=== PATIENT | male | born 1960 | race Two or more races ===

== ENCOUNTER 2019-11-01 13:36 | Inpatient (IN) | payer OTHER ==
[~2019-11-01] VITALS: Ht 182.9 cm; Wt 91.2 kg
[2019-11-01] MEDS ORDERED: SODIUM CHLORIDE 0.9% 1,000 ML IV ONE ×2 (13:46)
[2019-11-01] MEDS ORDERED: cefTRIAXone 1GM/50ML D5W 50 ML IV ONE (14:00)
[2019-11-01] MEDS ORDERED: DexAMETHasone SOD PHOS 10MG/1ML VIAL INJ IV ONE (14:00)
[2019-11-01] MEDS ORDERED: DOXYCYCLINE 100 MG TAB/CAP PO ONE (14:00)
[2019-11-01 14:28] LABS: Basophils # (auto) 0.1 10 ^3/uL (0-0.2); Basophils % (auto) 0.5 % (0.0-2.0); Eosinophils # (auto) 0 10 ^3/uL (0-0.8); Hematocrit 46.3 % (41.0-53.0); Hemoglobin 15.5 g/dL (13.5-17.5); Lymphocytes # (auto) 1.1 10 ^3/uL (0.4-5.4); Lymphocytes % (auto) 9.6 % (10.0-50.0); Mean Corpuscular Hemoglobin 28.8 pg (28.0-32.0); Mean Corpuscular Hgb Conc. 33.5 g/dL (32.0-36.0); Monocytes # (auto) 0.6 10 ^3/uL (0-1.3); Monocytes % (auto) 5.4 % (0.0-12.0); Neutrophils # (auto) 9.4 10 ^3/uL (1.6-8.6); Neutrophils % (auto) 84.5 % (37.0-80.0); Nucleated Red Blood Cells % 0.2 %; Platelet Count (auto) 135 10^3/uL (140-450); Red Blood Cells 5.38 10^6/uL (4.5-5.90); Red Cell Distribution Width 13.6 % (11.8-14.3); White Blood Cell 11.1 10^3/uL (4.4-10.8)
[2019-11-01 14:43] LABS: INR 0.98 (0.9-1.15); Partial Thromboplastin Time 29.3 sec (23.64-32.05)
[2019-11-01 14:48] LABS: Albumin 3.2 g/dL (3.4-5.0); Anion Gap 5 (5-15); Blood Urea Nitrogen 15 mg/dL (7-18); Carbon Dioxide 29 mmol/L (21-32); Chloride 99 mmol/L (98-107); Glucose 104 mg/dL (74-106); Potassium 3.7 mmol/L (3.5-5.1); Sodium 133 mmol/L (136-145)
[2019-11-01 14:50] LABS: Alanine Aminotransferase 23 U/L (16-61); Aspartate Aminotransferase 30 U/L (15-37); BUN/Creatinine Ratio 19.2; GFR African American 131 mL/min; GFR Non-African American 109 mL/min
[2019-11-01 14:55] LABS: Alkaline Phosphatase 62 U/L (45-117); Bilirubin, Total 0.6 mg/dL (0.2-1.0); Lactate Dehydrogenase 391 U/L (87-241); Total Protein 7.8 g/dL (6.4-8.2)
[2019-11-01 15:14] LABS: CRP High Sensitivity 11.3 mg/dL (< 0.3)
[2019-11-01] MEDS ORDERED: MORPHINE SULF INJ 2 MG/ML SYRINGE 1ML IV PRN (17:15)
[2019-11-01] MEDS ORDERED: NITROGLYCERIN 0.4 MG SL TAB SL PRN (17:15)
[2019-11-01] MEDS ORDERED: D5W/SOD CHL 0.45% 1,000 ML IV ONE (17:15)
[2019-11-01] MEDS ORDERED: ALBUTEROL SULF 2.5 MG/0.5ML(0.5%) NEB SOLN NEB SCH (18:00)
[2019-11-01 19:22] LABS: Urine Bacteria NONE SEEN /hpf (None Seen); Urine Blood Negative /uL (Negative); Urine WBC 1 /hpf (0 - 3)
[2019-11-01 23:35] VITALS: BP 116/69
[2019-11-01 23:46] VITALS: BP 116/69
[2019-11-01] MEDS ORDERED: ALBUAER3 IN (23:53)
[2019-11-01] MEDS ORDERED: MELO1TAB56 PO (23:53)
[2019-11-01] MEDS ORDERED: DULO1CAP5 PO (23:53)
[2019-11-02 05:00] VITALS: BP 110/65
[2019-11-02 09:00] VITALS: BP 113/74
[2019-11-02] MEDS: ENOXAPARIN SOD 40 MG/0.4 ML SYRINGE SC SCH (10:34)
[2019-11-02] MEDS: AZITHROMYCIN 500MG/ 250ML 250 ML IV SCH (10:34)
[2019-11-02] MEDS: cefTRIAXone 1GM/50ML D5W 50 ML IV SCH (10:34)
[2019-11-02] MEDS: PANTOPRAZOLE 40 MG TAB PO SCH (10:34)
[2019-11-02 13:00] VITALS: BP 112/66
[2019-11-02] MEDS ORDERED: methylPREDNISolone SOD SUCC 125 MG/2 ML VL IV ONE (14:30)
[2019-11-02 17:00] VITALS: BP 114/68
[2019-11-02] MEDS: FUROSEMIDE 20 MG/2 ML VIAL IV SCH (17:00)
[2019-11-02] MEDS: MUPIROCIN 2% OINT 15gm or 22gm EACHNOSTRI SCH (21:55)
[2019-11-02] MEDS: POTASSIUM CHL 10 Meq TABLET PO SCH (21:56)
[2019-11-02] MEDS: MONTELUKAST SODIUM 10 MG TAB PO SCH (21:57)
[2019-11-02 22:00] VITALS: BP 120/65
[2019-11-02] MEDS: ALBUTEROL SULF HFA 90MCG INH 200DOSE IN SCH (22:10)
[2019-11-03 01:34] VITALS: BP 120/65
[2019-11-03 05:00] VITALS: BP 121/63
[2019-11-03] MEDS: FUROSEMIDE 20 MG/2 ML VIAL IV SCH ×2 (05:21→18:26)
[2019-11-03] MEDS: ALBUTEROL SULF HFA 90MCG INH 200DOSE IN SCH ×5 (05:21→22:20)
[2019-11-03 07:27] LABS: Calcium 8.6 mg/dL (8.5-10.1); Potassium 4.5 mmol/L (3.5-5.1)
[2019-11-03 07:29] LABS: BUN/Creatinine Ratio 30.9
[2019-11-03 08:34] VITALS: BP 123/70
[2019-11-03] MEDS: cefTRIAXone 1GM/50ML D5W 50 ML IV SCH ×2 (10:25→11:22)
[2019-11-03] MEDS: AZITHROMYCIN 500MG/ 250ML 250 ML IV SCH (11:22)
[2019-11-03] MEDS: MUPIROCIN 2% OINT 15gm or 22gm EACHNOSTRI SCH ×2 (11:22→22:19)
[2019-11-03] MEDS: ZINC SULFATE 220mg CAP or TAB PO SCH (11:23)
[2019-11-03] MEDS: POTASSIUM CHL 10 Meq TABLET PO SCH ×2 (11:23→22:19)
[2019-11-03] MEDS: ENOXAPARIN SOD 40 MG/0.4 ML SYRINGE SC SCH (11:23)
[2019-11-03] MEDS: LORATADINE 10 MG TAB PO SCH (11:24)
[2019-11-03] MEDS: PANTOPRAZOLE 40 MG TAB PO SCH (11:24)
[2019-11-03 13:09] VITALS: BP 108/66
[2019-11-03 16:43] VITALS: BP 109/66
[2019-11-03 22:12] VITALS: BP 115/59
[2019-11-03] MEDS: MONTELUKAST SODIUM 10 MG TAB PO SCH (22:19)
[2019-11-04 05:35] VITALS: BP 106/72
[2019-11-04] MEDS: ALBUTEROL SULF HFA 90MCG INH 200DOSE IN SCH ×3 (06:30→22:35)
[2019-11-04] MEDS: FUROSEMIDE 20 MG/2 ML VIAL IV SCH ×2 (06:31→17:10)
[2019-11-04 09:00] VITALS: BP 114/72
[2019-11-04] MEDS: AZITHROMYCIN 500MG/ 250ML 250 ML IV SCH (09:53)
[2019-11-04] MEDS: MUPIROCIN 2% OINT 15gm or 22gm EACHNOSTRI SCH ×2 (09:53→21:36)
[2019-11-04] MEDS: DexAMETHasone 4 MG TAB PO SCH (09:53)
[2019-11-04] MEDS: ZINC SULFATE 220mg CAP or TAB PO SCH (09:53)
[2019-11-04] MEDS: LORATADINE 10 MG TAB PO SCH (09:53)
[2019-11-04] MEDS: PANTOPRAZOLE 40 MG TAB PO SCH (09:54)
[2019-11-04] MEDS: POTASSIUM CHL 10 Meq TABLET PO SCH ×2 (09:54→21:36)
[2019-11-04] MEDS: ENOXAPARIN SOD 40 MG/0.4 ML SYRINGE SC SCH (09:54)
[2019-11-04 13:00] VITALS: BP 99/61
[2019-11-04 17:00] VITALS: BP 105/72
[2019-11-04] MEDS: MONTELUKAST SODIUM 10 MG TAB PO SCH (21:36)
[2019-11-04 22:00] VITALS: BP 109/69
[2019-11-05] VITALS (7 sets, daily range): BP systolic 113–133; BP diastolic 60–75
[2019-11-05] MEDS: FUROSEMIDE 20 MG/2 ML VIAL IV SCH ×2 (06:23→18:04)
[2019-11-05] MEDS: ALBUTEROL SULF HFA 90MCG INH 200DOSE IN SCH ×3 (06:25→22:00)
[2019-11-05] MEDS: ZINC SULFATE 220mg CAP or TAB PO SCH (11:14)
[2019-11-05] MEDS: cefTRIAXone 1GM/50ML D5W 50 ML IV SCH (11:14)
[2019-11-05] MEDS: LORATADINE 10 MG TAB PO SCH (11:14)
[2019-11-05] MEDS: AZITHROMYCIN 500MG/ 250ML 250 ML IV SCH (11:14)
[2019-11-05] MEDS: MUPIROCIN 2% OINT 15gm or 22gm EACHNOSTRI SCH ×2 (11:14→22:35)
[2019-11-05] MEDS: PANTOPRAZOLE 40 MG TAB PO SCH (11:15)
[2019-11-05] MEDS: DexAMETHasone 4 MG TAB PO SCH (11:15)
[2019-11-05] MEDS: POTASSIUM CHL 10 Meq TABLET PO SCH ×2 (11:15→22:35)
[2019-11-05] MEDS: ENOXAPARIN SOD 40 MG/0.4 ML SYRINGE SC SCH (11:15)
[2019-11-05] MEDS: MONTELUKAST SODIUM 10 MG TAB PO SCH (22:35)
[2019-11-06 04:59] VITALS: BP 114/74
[2019-11-06] MEDS: ALBUTEROL SULF HFA 90MCG INH 200DOSE IN SCH ×3 (06:00→21:14)
[2019-11-06] MEDS: FUROSEMIDE 20 MG/2 ML VIAL IV SCH ×2 (06:30→17:52)
[2019-11-06 08:00] VITALS: BP 127/74
[2019-11-06 08:42] VITALS: BP 127/74
[2019-11-06] MEDS: AZITHROMYCIN 500MG/ 250ML 250 ML IV SCH (10:31)
[2019-11-06] MEDS: cefTRIAXone 1GM/50ML D5W 50 ML IV SCH (10:32)
[2019-11-06] MEDS: PANTOPRAZOLE 40 MG TAB PO SCH (10:33)
[2019-11-06] MEDS: POTASSIUM CHL 10 Meq TABLET PO SCH ×2 (10:33→22:17)
[2019-11-06] MEDS: ENOXAPARIN SOD 40 MG/0.4 ML SYRINGE SC SCH (10:33)
[2019-11-06] MEDS: ZINC SULFATE 220mg CAP or TAB PO SCH (10:34)
[2019-11-06] MEDS: LORATADINE 10 MG TAB PO SCH (10:34)
[2019-11-06] MEDS: DexAMETHasone 4 MG TAB PO SCH (10:35)
[2019-11-06 13:12] VITALS: BP 111/76
[2019-11-06] MEDS: MUPIROCIN 2% OINT 15gm or 22gm EACHNOSTRI SCH ×2 (14:07→22:17)
[2019-11-06 16:24] VITALS: BP 128/78
[2019-11-06 22:00] VITALS: BP 132/68
[2019-11-06] MEDS: MONTELUKAST SODIUM 10 MG TAB PO SCH (22:17)
[2019-11-07 05:00] VITALS: BP 114/64
[2019-11-07] MEDS: FUROSEMIDE 20 MG/2 ML VIAL IV SCH ×3 (05:57→18:38)
[2019-11-07] MEDS: ALBUTEROL SULF HFA 90MCG INH 200DOSE IN SCH ×4 (05:57→22:00)
[2019-11-07 08:00] VITALS: BP 129/74
[2019-11-07 09:00] VITALS: BP 129/74
[2019-11-07] MEDS: AZITHROMYCIN 500MG/ 250ML 250 ML IV SCH (10:00)
[2019-11-07] MEDS: cefTRIAXone 1GM/50ML D5W 50 ML IV SCH (10:53)
[2019-11-07] MEDS: ENOXAPARIN SOD 40 MG/0.4 ML SYRINGE SC SCH (10:55)
[2019-11-07] MEDS: DexAMETHasone 4 MG TAB PO SCH (10:55)
[2019-11-07] MEDS: ZINC SULFATE 220mg CAP or TAB PO SCH (10:56)
[2019-11-07] MEDS: PANTOPRAZOLE 40 MG TAB PO SCH (10:56)
[2019-11-07] MEDS: LORATADINE 10 MG TAB PO SCH (10:56)
[2019-11-07] MEDS: POTASSIUM CHL 10 Meq TABLET PO SCH ×2 (10:57→21:14)
[2019-11-07] MEDS: MUPIROCIN 2% OINT 15gm or 22gm EACHNOSTRI SCH (10:57)
[2019-11-07 13:00] VITALS: BP 114/74
[2019-11-07 17:00] VITALS: BP 122/68
[2019-11-07] MEDS: MONTELUKAST SODIUM 10 MG TAB PO SCH (21:14)
[2019-11-07 22:00] VITALS: BP 117/67
[2019-11-08 05:00] VITALS: BP 130/70
[2019-11-08] MEDS: HYDROcodone-ACET 10/325MG TAB PO PRN ×2 (05:38→18:28)
[2019-11-08] MEDS: FUROSEMIDE 20 MG/2 ML VIAL IV SCH ×2 (05:38→18:10)
[2019-11-08 07:17] LABS: Hematocrit 46.7 % (41.0-53.0); Hemoglobin 15.5 g/dL (13.5-17.5); Mean Corpuscular Hemoglobin 29.1 pg (28.0-32.0); Mean Corpuscular Hgb Conc. 33.2 g/dL (32.0-36.0); Mean Corpuscular Volume 87.6 fL (80.0-100.0); Platelet Count (auto) 304 10^3/uL (140-450); Red Blood Cells 5.32 10^6/uL (4.5-5.90); Red Cell Distribution Width 13.5 % (11.8-14.3); White Blood Cell 9.7 10^3/uL (4.4-10.8)
[2019-11-08 07:22] LABS: Basophils % (manual) 0 (0.0-2.0); Blast Cells 0; Eosinophils % (manual) 0 (0-7); Metamyelocytes % 0; Myelocytes % 0; Promyelocytes % 0; Reactive Lymphocytes 0
[2019-11-08 07:35] LABS: Potassium 4.7 mmol/L (3.5-5.1)
[2019-11-08 07:39] LABS: BUN/Creatinine Ratio 28.2
[2019-11-08 07:51] LABS: Band Neutrophils % (manual) 1; Lymphocytes % (manual) 14 (10.0-50.0); Monocytes % (manual) 4 (0-12)
[2019-11-08 08:00] VITALS: BP 139/81
[2019-11-08] MEDS: DexAMETHasone 4 MG TAB PO SCH (08:44)
[2019-11-08] MEDS: cefTRIAXone 1GM/50ML D5W 50 ML IV SCH (08:48)
[2019-11-08] MEDS: AZITHROMYCIN 500MG/ 250ML 250 ML IV SCH (08:48)
[2019-11-08] MEDS: LORATADINE 10 MG TAB PO SCH (08:49)
[2019-11-08] MEDS: PANTOPRAZOLE 40 MG TAB PO SCH (08:49)
[2019-11-08] MEDS: ZINC SULFATE 220mg CAP or TAB PO SCH (08:49)
[2019-11-08] MEDS: POTASSIUM CHL 10 Meq TABLET PO SCH ×2 (08:49→21:18)
[2019-11-08] MEDS: ENOXAPARIN SOD 40 MG/0.4 ML SYRINGE SC SCH (08:50)
[2019-11-08 09:00] VITALS: BP 139/81
[2019-11-08 13:00] VITALS: BP 129/75
[2019-11-08 16:42] VITALS: BP 131/68
[2019-11-08] MEDS: MONTELUKAST SODIUM 10 MG TAB PO SCH (21:18)
[2019-11-08 22:00] VITALS: BP 126/74
[2019-11-09 05:00] VITALS: BP 122/70
[2019-11-09] MEDS: FUROSEMIDE 20 MG/2 ML VIAL IV SCH ×2 (05:23→17:45)
[2019-11-09] MEDS: HYDROcodone-ACET 10/325MG TAB PO PRN ×2 (05:48→16:29)
[2019-11-09 08:27] VITALS: BP 114/88
[2019-11-09] MEDS: cefTRIAXone 1GM/50ML D5W 50 ML IV SCH (08:59)
[2019-11-09] MEDS: POTASSIUM CHL 10 Meq TABLET PO SCH ×2 (10:41→23:07)
[2019-11-09] MEDS: ENOXAPARIN SOD 40 MG/0.4 ML SYRINGE SC SCH (10:41)
[2019-11-09] MEDS: AZITHROMYCIN 500MG/ 250ML 250 ML IV SCH (10:42)
[2019-11-09] MEDS: DexAMETHasone 4 MG TAB PO SCH (10:42)
[2019-11-09] MEDS: LORATADINE 10 MG TAB PO SCH (10:42)
[2019-11-09] MEDS: PANTOPRAZOLE 40 MG TAB PO SCH (10:42)
[2019-11-09] MEDS: ZINC SULFATE 220mg CAP or TAB PO SCH (10:42)
[2019-11-09 12:22] VITALS: BP 105/59
[2019-11-09 16:18] VITALS: BP 136/76
[2019-11-09 22:00] VITALS: BP 118/58
[2019-11-09] MEDS: MONTELUKAST SODIUM 10 MG TAB PO SCH (23:07)
[2019-11-10] MEDS: HYDROcodone-ACET 10/325MG TAB PO PRN ×2 (00:34→12:30)
[2019-11-10 05:00] VITALS: BP 117/66
[2019-11-10] MEDS: FUROSEMIDE 20 MG/2 ML VIAL IV SCH ×2 (06:13→17:55)
[2019-11-10 09:00] VITALS: BP 117/47
[2019-11-10] MEDS: cefTRIAXone 1GM/50ML D5W 50 ML IV SCH (09:10)
[2019-11-10] MEDS: DexAMETHasone 4 MG TAB PO SCH (10:08)
[2019-11-10] MEDS: ENOXAPARIN SOD 40 MG/0.4 ML SYRINGE SC SCH (10:08)
[2019-11-10] MEDS: PANTOPRAZOLE 40 MG TAB PO SCH (10:08)
[2019-11-10] MEDS: POTASSIUM CHL 10 Meq TABLET PO SCH ×2 (10:08→22:28)
[2019-11-10] MEDS: LORATADINE 10 MG TAB PO SCH (10:08)
[2019-11-10] MEDS: AZITHROMYCIN 500MG/ 250ML 250 ML IV SCH (10:08)
[2019-11-10] MEDS: ZINC SULFATE 220mg CAP or TAB PO SCH (10:08)
[2019-11-10 12:40] VITALS: BP 109/65
[2019-11-10 17:00] VITALS: BP 114/65
[2019-11-10 22:00] VITALS: BP 121/70
[2019-11-10] MEDS: MONTELUKAST SODIUM 10 MG TAB PO SCH (22:28)
[2019-11-11] MEDS: HYDROcodone-ACET 10/325MG TAB PO PRN ×3 (00:16→17:58)
[2019-11-11 05:00] VITALS: BP 124/74
[2019-11-11] MEDS: FUROSEMIDE 20 MG/2 ML VIAL IV SCH ×2 (05:57→17:48)
[2019-11-11 08:00] VITALS: BP 119/72
[2019-11-11] MEDS: cefTRIAXone 1GM/50ML D5W 50 ML IV SCH (08:38)
[2019-11-11 08:57] VITALS: BP 119/72
[2019-11-11] MEDS: LORATADINE 10 MG TAB PO SCH (09:59)
[2019-11-11] MEDS: DexAMETHasone 4 MG TAB PO SCH (09:59)
[2019-11-11] MEDS: ZINC SULFATE 220mg CAP or TAB PO SCH (09:59)
[2019-11-11] MEDS: AZITHROMYCIN 500MG/ 250ML 250 ML IV SCH (09:59)
[2019-11-11] MEDS: PANTOPRAZOLE 40 MG TAB PO SCH (10:00)
[2019-11-11] MEDS: ENOXAPARIN SOD 40 MG/0.4 ML SYRINGE SC SCH (10:00)
[2019-11-11] MEDS: POTASSIUM CHL 10 Meq TABLET PO SCH ×2 (10:00→21:46)
[2019-11-11 13:00] VITALS: BP 116/57
[2019-11-11 17:15] VITALS: BP 122/74
[2019-11-11] MEDS: MONTELUKAST SODIUM 10 MG TAB PO SCH (21:46)
[2019-11-11 22:00] VITALS: BP 114/64
[2019-11-12 05:04] VITALS: BP 125/78
[2019-11-12] MEDS: FUROSEMIDE 20 MG/2 ML VIAL IV SCH ×2 (05:51→18:06)
[2019-11-12] MEDS: HYDROcodone-ACET 10/325MG TAB PO PRN ×2 (05:51→22:02)
[2019-11-12 09:08] VITALS: BP 126/70
[2019-11-12] MEDS: cefTRIAXone 1GM/50ML D5W 50 ML IV SCH (09:52)
[2019-11-12] MEDS: AZITHROMYCIN 500MG/ 250ML 250 ML IV SCH (09:52)
[2019-11-12] MEDS: LORATADINE 10 MG TAB PO SCH (09:53)
[2019-11-12] MEDS: ZINC SULFATE 220mg CAP or TAB PO SCH (09:53)
[2019-11-12] MEDS: DexAMETHasone 4 MG TAB PO SCH (09:53)
[2019-11-12] MEDS: ENOXAPARIN SOD 40 MG/0.4 ML SYRINGE SC SCH (09:54)
[2019-11-12] MEDS: POTASSIUM CHL 10 Meq TABLET PO SCH ×2 (09:54→21:51)
[2019-11-12] MEDS: PANTOPRAZOLE 40 MG TAB PO SCH (09:54)
[2019-11-12 14:37] VITALS: BP 114/72
[2019-11-12 16:56] VITALS: BP 115/69
[2019-11-12 20:00] VITALS: BP 102/64
[2019-11-12] MEDS: MONTELUKAST SODIUM 10 MG TAB PO SCH (21:51)
[2019-11-12 22:00] VITALS: BP 102/64
[2019-11-13 05:00] VITALS: BP 134/76
[2019-11-13] MEDS: HYDROcodone-ACET 10/325MG TAB PO PRN (06:10)
[2019-11-13] MEDS: FUROSEMIDE 20 MG/2 ML VIAL IV SCH (06:10)
[2019-11-13 09:00] VITALS: BP 125/72
[2019-11-13] MEDS: ZINC SULFATE 220mg CAP or TAB PO SCH (10:19)
[2019-11-13] MEDS: ENOXAPARIN SOD 40 MG/0.4 ML SYRINGE SC SCH (10:20)
[2019-11-13] MEDS: PANTOPRAZOLE 40 MG TAB PO SCH (10:20)
[2019-11-13] MEDS: DexAMETHasone 4 MG TAB PO SCH (10:20)
[2019-11-13] MEDS: POTASSIUM CHL 10 Meq TABLET PO SCH (10:20)
[2019-11-13] MEDS: LORATADINE 10 MG TAB PO SCH (10:20)
[2019-11-13 13:00] VITALS: BP 114/83
[2019-11-13 13:56] VITALS: BP 114/83
== END 2019-11-13 16:13 | DRG 177 ==
LOC: EDSEX 13:36 → EEVIPCON 13:36 → ER 13:36 → EDBD 13:36 → OVERFLOW 13:37 → EAST 21:48
PROVIDERS: ADMIT Internal Medicine; ATTEND Internal Medicine
DX: U07.1 COVID-19 (principal); J12.89 Other viral pneumonia; J96.01 Acute respiratory failure with hypoxia; J98.11 Atelectasis; I50.32 Chronic diastolic (congestive) heart failure; J45.909 Unspecified asthma, uncomplicated; Z82.49 Family history of ischemic heart disease and other diseases of the circulatory system; Z83.3 Family history of diabetes mellitus; Z87.891 Personal history of nicotine dependence
CPT/HCPCS: 36415; 71045; 80048; 80053; 81001; 82728; 83615; 83880; 84484; 85007; 85025; 85027; 85610; 85730; 86141; 87070; 87081; 87804; 87880; 93005; 94640; 96365; 96375; 99291; G0378; J0696; J1100